=== PATIENT | female | born 1945 | race Caucasian/White ===

== ENCOUNTER 2019-01-21 21:26 | Emergency (ER) | payer MEDICARE, BC ==
--- NOTE | 2019-01-21 22:09 | RAD ---
FEXAM: Portable chest PROVIDED CLINICAL HISTORY: Chest pain COMPARISON: 07/17/2016 FINDINGS: Cardiac and mediastinal silhouette is within normal limits. No focal consolidation, pleural fluid or pneumothorax evident. Vascular calcification is noted involving the aortic arch. Implanted loop recor jany device again noted. IMPRESSION: No evidence for an acute cardiopulmonary process.
[2019-01-21 22:28] LABS: #Basophils 0.1 thou/uL (0.0-0.2); #Eosinphils 0.3 thou/uL (0.0-0.7); #Lymphocytes 2.3 thou/uL (1.20-3.40); #Monocytes 0.5 thou/uL (0.11-0.59); #Neutrophils 1.9 thou/uL (1.40-6.50); %Basophils 1.7 % (0.0-1.0); %Eosinophils 5.1 % (0.0-10.0); %Lymphocytes 45.6 % (21.0-51.0); %Monocytes 9.4 % (0.0-10.0); %Neutrophils 38.2 % (42.0-75.0); Hemoglobin 12.2 g/dL (12.0-16.0); Mean Corpuscular HGB CONC 33.2 g/dL (32.0-36.0); Mean Corpuscular Hemoglobin 28.1 pg (27.0-31.0); Mean Corpuscular Volume 84.6 fL (78.0-98.0); Mean Platelet Volume 7.2 fL (7.4-10.4); Platelet Count 217 thou/uL (130-400); RBC Distribution Width 12.8 % (11.5-14.5); Red Blood Cell (RBC) Count 4.33 mill/uL (4.20-5.40)
[2019-01-21 22:47] LABS: ALT (SGPT) 12 U/L (8-55); AST (SGOT) 18 U/L (5-34); Albumin 4.1 g/dL (3.4-4.8); Alkaline Phosphatase 80 U/L (40-150); Anion Gap 11 mmol/L (10-20); BUN (Urea Nitrogen) 15 mg/dL (9.8-20.1); Bilirubin, Total 0.3 mg/dL (0.2-1.2); CK (CPK) 37 U/L (29-168); Calc. Creatinine Clearance 0 mL/min (70-130); Calcium 10.2 mg/dL (7.8-10.44); Carbon Dioxide 23 mmol/L (23-31); Chloride 107 mmol/L (98-107); Estimated GFR-MDRD 88; Globulin 3.2 g/dL (2.4-3.5); Glucose 97 mg/dL (83-110); Potassium 3.4 mmol/L (3.5-5.1); Protein, Total 7.3 g/dL (6.0-8.3); Sodium 138 mmol/L (136-145)
[2019-01-22 01:51] LABS: Troponin I Less than 0.010 ng/mL (< 0.028)
== END 2019-01-22 02:10 | disposition home or self-care (01) ==
LOC: ERS 21:26
DX: R07.89 Other chest pain (principal); R00.2 Palpitations; E03.9 Hypothyroidism, unspecified; F41.9 Anxiety disorder, unspecified; I47.1 Supraventricular tachycardia; Z79.899 Other long term (current) drug therapy
CPT/HCPCS: 36415; 71045; 80053; 82550; 84484; 85025; 93005

== ENCOUNTER 2019-11-17 12:28 | Outpatient (CLI) | payer MEDICARE, BC ==
[2019-11-17] MEDS ORDERED: Iopamidol-370 76% 500 ML 1 ML ONE (13:24)
--- NOTE | 2019-11-17 14:58 | CT ---
CT NECK WITH CONTRAST: Date: 11/17/2019 INDICATION: Palpable mass base of neck on the right and above the clavicle. The area of concern is marked with a skin marker. FINDINGS: There is an enhancing nodular mass in the right parotid gland measuring 1.0 cm. Parotids otherwise un remarkable. Submandibular glands unremarkable. Thyroid unremarkable. Nasopharynx unremarkable. Base of tongue obscured by dental appliance artifact. The sublingual region and oropharynx appear unr emarkable. Hypopharynx and larynx unremarkable. [employer] space, parapharyngeal space, and retropharyngeal space unremarkable. Paranasal sinuses and mastoids clear. Degenerative changes in the cervical spine with spondylosis and disc narrowing at C4-5, C5-6, and C6-7 levels. No evidence of cervical adenopathy. Nonspecific Level II lymph nodes are subcentimeter. A skin marker is seen anteriorly at the base of the neck on the right just above the clavicle. No und erlying mass is identified at this location. IMPRESSION: 1. There is enhancing nodule in the right parotid gland. Pleomorphic adenoma or other parotid neopla sm cannot be excluded. Recommend ENT consultation and follow-up. 2. CT neck otherwise unremarkable. No evidence of mass seen at the site of the skin marker on the ri ght. POS: MYRNA
--- NOTE | 2019-11-17 15:06 | CT ---
CT OF THE THORAX WITH IV CONTRAST: INDICATION: History of neck mass. COMPARISON: None. FINDINGS: No visible lymphadenopathy is evident. No suspicious airspace consolidation, pulmonary nodule, or pl eural effusion is evident. There are 2 separate sub-4 mm pulmonary nodules within the right middle l obe. There are 2 separate tiny hypodensities within the liver, difficult to characterize due to thei r size. Adrenal glands are normal-appearing. There is scattered degenerative and osteoarthritic renata nge. There is a small hiatal hernia. IMPRESSION: No acute cardiopulmonary abnormality. POS: CET
== END 2019-11-17 12:29 | disposition home or self-care (01) ==
LOC: BICCT 12:28
PROVIDERS: ATTEND Family Medicine
DX: R22.1 Localized swelling, mass and lump, neck (principal); K11.8 Other diseases of salivary glands
CPT/HCPCS: 70491; 71260; 82565; Q9967

== ENCOUNTER 2019-12-17 08:43 | Day surgery (SDC) | payer MEDICARE, BC ==
[2019-12-16 12:04] VITALS: BMI 27.4
[2019-12-17] MEDS ORDERED: Fentanyl 250 MCG/5 ML VIAL ONE (09:15)
[2019-12-17 09:38] LABS: Hemoglobin 12.3 g/dL (12.0-16.0)
[2019-12-17] MEDS ORDERED: Lidocaine 1% PF 5 ML VIAL ONE (09:50)
[2019-12-17] MEDS ORDERED: Dexamethasone 20 MG/5 ML VIAL ONE (09:50)
[2019-12-17] MEDS ORDERED: Rocuronium Bromide 10 MG/ML (10ML VIAL) ONE (09:50)
[2019-12-17] MEDS ORDERED: EPHEDRINE 25 MG/5 ML SYRINGE ONE (09:50)
[2019-12-17] MEDS ORDERED: PROPOFOL 200 MG/20 ML VIAL ONE (09:50)
[2019-12-17] MEDS ORDERED: Glycopyrrolate 0.2 MG/ML 5 ML SYRINGE ONE (09:50)
[2019-12-17] MEDS ORDERED: Ondansetron PF 4 MG/2 ML Vial ONE (09:50)
[2019-12-17 09:59] LABS: Anion Gap 11 mmol/L (10-20); BUN (Urea Nitrogen) 17 mg/dL (9.8-20.1); Calc. Creatinine Clearance 79 mL/min (70-130); Calcium 9.8 mg/dL (7.8-10.44); Carbon Dioxide 27 mmol/L (23-31); Chloride 105 mmol/L (98-107); Estimated GFR-MDRD 78; Glucose 89 mg/dL (83-110); Potassium 3.3 mmol/L (3.5-5.1); Sodium 140 mmol/L (136-145)
[2019-12-17] MEDS ORDERED: Bacitracin Zinc Ointment 30 gm TUBE ONE (10:08)
[2019-12-17] MEDS ORDERED: Lidocaine 1% w/Epinephrine 1:100K 20 ML VIAL ONE (10:08)
[2019-12-17] MEDS ORDERED: Propofol 500 MG/50 ML VIAL ONE (10:36)
[2019-12-17] MEDS ORDERED: Clindamycin/D5W 900 mg/50 ml Premix Bag ONE (10:55)
--- NOTE | 2019-12-17 12:36 | EKG ---
Test Reason : PREOP Blood Pressure : / mmHG Vent. Rate : 075 BPM Atrial Rate : 075 BPM P-R Int : 184 ms QRS Dur : 112 ms QT Int : 404 ms P-R-T Axes : 065 -23 044 degrees QTc Int : 451 ms Normal sinus rhythm Normal ECG When compared with ECG of 21-JAN-2019 21:40, No significant change was found Confirmed by DR. Zaki TALBERT ([id number]) on 12/17/2019 12:35:52 PM Referred By: BLANCA Confirmed By:DR. Zaki TALBERT
--- NOTE | 2019-12-18 09:57 | OP ---
DATE OF PROCEDURE: 12/17/2019 PREOPERATIVE DIAGNOSIS: Right parotid gland mass. POSTOPERATIVE DIAGNOSIS: Right parotid gland mass. PROCEDURES PERFORMED: 1. Right superficial parotidectomy. 2. Intraoperative facial nerve monitoring x1 hour. ESTIMATED BLOOD LOSS: 10 mL. COMPLICATIONS: None. ANESTHESIA: GETA. DESCRIPTION OF PROCEDURE: The patient was taken to the operating room and placed supine on the table. General endotracheal anesthesia was obtained by the Anesthesia staff. The head of the bed was then turned 90 degrees. A shoulder roll was placed, and the head was gently tilted to provide exposure of the right parotid neck area. Following this, 8 mL of 1% lidocaine with 1:100,000 epinephrine was injected into a previously marked modified Blaine incision extending from the preauricular skin crease around the earlobe with a 1 cm margin and then connecting in a curvilinear fashion to connect to a skin crease approximately 2 cm below the right angle of the mandible. The patient was then prepped and draped in standard surgical fashion. The facial nerve monitor was inserted into the orbicularis auris and the orbicularis oculi muscle on the right side. It was tested and was noted to be working. It remained on throughout the procedure with the nurse designated to observe for any discharges. Following this, the skin was elevated, and the parotid gland was identified and was freed from the tragal cartilage as well as from the sternocleidomastoid. Dissection was carried down the tragal cartilage, and the right facial nerve main branch was identified. As it was dissected laterally, the pes anserinus was identified, and a parotid mass was identified just lateral and inferior to the inferior branch of the right facial nerve. The mass was removed along with a cuff of normal parotid tissue while preserving the facial nerve. Following this, wound was irrigated. Hemostasis was obtained. The skin was then reapproximated to its normal anatomical position. A drain was left intact and in place. The deep tissues were closed using 3-0 and 4-0 Monocryl, and the skin was closed using Dermabond. This was the end of the procedure. The facial nerve monitor was then removed and was turned off. Job ID: [id number]
== END 2019-12-17 13:10 | disposition home or self-care (01) ==
LOC: SDC 08:43
PROVIDERS: ATTEND Otolaryngology Plastic Surgery within the Head & Neck
PROC: 0CT80ZZ Resection of Right Parotid Gland, Open Approach (ICD-10-PCS; principal; 2019-12-17)
PROC: 00BM0ZZ Excision of Facial Nerve, Open Approach (ICD-10-PCS; 2019-12-17)
DX: D11.0 Benign neoplasm of parotid gland (principal); E65 Localized adiposity; E03.9 Hypothyroidism, unspecified; Z79.899 Other long term (current) drug therapy; Z88.0 Allergy status to penicillin; Z88.1 Allergy status to other antibiotic agents; Z88.2 Allergy status to sulfonamides; Z88.5 Allergy status to narcotic agent; Z91.040 Latex allergy status
CPT/HCPCS: 36415; 80048; 85014; 85018; 88305; 93005; 93010; J1100; J2001; J2405; J2704; J3010; J3490

== ENCOUNTER 2022-05-21 04:36 | Observation (INO) | payer MEDICARE, BC ==
[2022-05-21 05:47] LABS: #Eosinphils 0.2 thou/uL (0.0-0.7); #Lymphocytes 1.8 thou/uL (1.20-3.40); #Monocytes 0.5 thou/uL (0.11-0.59); %Basophils 0.8 % (0.0-1.0); %Eosinophils 4.3 % (0.0-10.0); %Lymphocytes 32.6 % (21.0-51.0); %Monocytes 8.6 % (0.0-10.0); %Neutrophils 53.7 % (42.0-75.0); ALT (SGPT) 10 U/L (8-55); AST (SGOT) 14 U/L (5-34); Albumin 3.9 g/dL (3.4-4.8); Alkaline Phosphatase 82 U/L (40-110); Anion Gap 17 mmol/L (10-20); BUN (Urea Nitrogen) 20 mg/dL (9.8-20.1); Bilirubin, Total 0.4 mg/dL (0.2-1.2); Calc. Creatinine Clearance 0 mL/min (70-130); Calcium 10.1 mg/dL (7.8-10.44); Carbon Dioxide 18 mmol/L (23-31); Chloride 111 mmol/L (98-107); Estimated GFR 89; Globulin 3.4 g/dL (2.4-3.5); Glucose 103 mg/dL (83-110); Hemoglobin 11.5 g/dL (12.0-16.0); Mean Corpuscular HGB CONC 32.4 g/dL (32.0-36.0); Mean Corpuscular Hemoglobin 25.1 pg (27.0-31.0); Mean Corpuscular Volume 77.4 fL (78.0-98.0); Mean Platelet Volume 8.6 fL (7.4-10.4); Platelet Count 243 thou/uL (130-400); Potassium 3.7 mmol/L (3.5-5.1); Protein, Total 7.3 g/dL (5.8-8.1); RBC Distribution Width 14.6 % (11.5-14.5); Sodium 142 mmol/L (136-145); White Blood Cell (WBC) Count 5.6 thou/uL (4.8-10.8)
[2022-05-21] MEDS ORDERED: Aspirin Chewable 81 MG TAB ONE (08:36)
[2022-05-21 09:52] LABS: Troponin I 0.038 ng/mL (< 0.028)
[2022-05-21 10:03] VITALS: BMI 28.6
[2022-05-21] MEDS ORDERED: Acetaminophen 325 MG TAB PO PRN (10:10)
[2022-05-21] MEDS ORDERED: Diltiazem 125 MG in Sodium Chloride 0.9% 100 ML IVPB SCH (10:15)
[2022-05-21] MEDS ORDERED: Ondansetron ODT 4 MG TAB PO PRN (10:18)
[2022-05-21] MEDS ORDERED: Ondansetron PF 4 MG/2 ML Vial IVP PRN (10:18)
[2022-05-21 12:15] LABS: Troponin I 0.042 ng/mL (< 0.028)
[2022-05-21] MEDS ORDERED: Flecainide 50 MG TAB PO SCH (12:15)
[2022-05-21] MEDS ORDERED: Diltiazem HCl 125 MG in Premix Bag 1 BAG IVPB SCH (12:45)
[2022-05-21 18:32] LABS: Troponin I 0.033 ng/mL (< 0.028)
[2022-05-21] MEDS: Enoxaparin Sodium 80 MG/0.8 ML SYRINGE SC SCH (20:46)
[2022-05-21] MEDS: Flecainide 50 MG TAB PO SCH (20:46)
[2022-05-21] MEDS ORDERED: Apixaban 5 MG TAB PO SCH ×2 (21:00)
[2022-05-22 05:29] LABS: #Basophils 0.1 thou/uL (0.0-0.2); #Eosinphils 0.3 thou/uL (0.0-0.7); #Lymphocytes 1.7 thou/uL (1.20-3.40); #Monocytes 0.4 thou/uL (0.11-0.59); #Neutrophils 1.9 thou/uL (1.40-6.50); %Basophils 1.3 % (0.0-1.0); %Eosinophils 6.5 % (0.0-10.0); %Lymphocytes 38.5 % (21.0-51.0); %Neutrophils 43.7 % (42.0-75.0); Mean Corpuscular HGB CONC 30.8 g/dL (32.0-36.0); Mean Corpuscular Hemoglobin 24.5 pg (27.0-31.0); Mean Corpuscular Volume 79.6 fL (78.0-98.0); Mean Platelet Volume 8.4 fL (7.4-10.4); Platelet Count 207 thou/uL (130-400); RBC Distribution Width 14.5 % (11.5-14.5); Red Blood Cell (RBC) Count 4.08 mill/uL (4.20-5.40); White Blood Cell (WBC) Count 4.3 thou/uL (4.8-10.8)
[2022-05-22 05:45] LABS: Anion Gap 12 mmol/L (10-20); BUN (Urea Nitrogen) 20 mg/dL (9.8-20.1); Calc. Creatinine Clearance 100 mL/min (70-130); Calcium 9.2 mg/dL (7.8-10.44); Carbon Dioxide 22 mmol/L (23-31); Chloride 108 mmol/L (98-107); Estimated GFR 94; Glucose 90 mg/dL (83-110); Potassium 3.6 mmol/L (3.5-5.1); Sodium 138 mmol/L (136-145)
[2022-05-22] MEDS ORDERED: Levothyroxine Sodium 100 MCG TAB PO SCH (06:00)
[2022-05-22] MEDS: Flecainide 50 MG TAB PO SCH (08:58)
[2022-05-22] MEDS: Enoxaparin Sodium 80 MG/0.8 ML SYRINGE SC SCH (11:09)
[2022-05-22 11:43] VITALS: BP 143/65; TEMP 98.3
== END 2022-05-22 11:52 | disposition home or self-care (01) ==
LOC: ERS 04:36 → 2SW 08:41
PROVIDERS: ADMIT Hospitalist; ATTEND Hospitalist
DX: I48.91 Unspecified atrial fibrillation (principal); E03.9 Hypothyroidism, unspecified; I47.1 Supraventricular tachycardia; I08.8 Other rheumatic multiple valve diseases; Z87.891 Personal history of nicotine dependence; Z79.890 Hormone replacement therapy; Z79.899 Other long term (current) drug therapy; Z88.0 Allergy status to penicillin; Z88.1 Allergy status to other antibiotic agents; Z88.2 Allergy status to sulfonamides; Z88.5 Allergy status to narcotic agent; Z91.040 Latex allergy status; Z20.822 Contact with and (suspected) exposure to COVID-19
CPT/HCPCS: 71045; 80048; 83735; 84484 ×2; 85025; 93005; 93306; 96372; G0378 ×3; U0003; U0005; 36415; 80053; 84443; 96374; J1650

== ENCOUNTER 2022-12-10 20:38 | Observation (INO) | payer OTHER, MEDICARE, BC ==
[2022-12-10] MEDS ORDERED: Ketorolac Tromethamine 30 MG/ML VIAL ONE (21:30)
[2022-12-10] MEDS ORDERED: Ondansetron PF 4 MG/2 ML Vial ONE (21:30)
[2022-12-10] MEDS ORDERED: Fentanyl 100 MCG/2 ML VIAL ONE (21:30)
[2022-12-10] MEDS ORDERED: Ketamine 50 MG/ML (10ML VIAL) ONE (21:32)
[2022-12-11] MEDS ORDERED: Ondansetron ODT 4 MG TAB PO PRN (00:49)
[2022-12-11] MEDS ORDERED: Dextrose 50% Abboject 50 ML SYRINGE SLOW IVP PRN (00:49)
[2022-12-11] MEDS ORDERED: Dextrose 5% in Water 1,000 ML IV PRN (00:49)
[2022-12-11] MEDS ORDERED: Ondansetron PF 4 MG/2 ML Vial IVP PRN (00:49)
[2022-12-11] MEDS ORDERED: TETANUS, DIPHTHERIA TOX,ADULT (TDVAX) 0.5 ML VIAL IM ONE (00:49)
[2022-12-11] MEDS ORDERED: traMADol HCl 50 MG TAB PO PRN (00:52)
[2022-12-11 01:13] VITALS: BMI 29.7
[2022-12-11] MEDS: Ibuprofen 200 MG TAB PO SCH ×2 (01:40→13:21)
[2022-12-11] MEDS: Acetaminophen 500 MG TAB PO SCH ×2 (01:40→13:20)
[2022-12-11 01:58] LABS: SARS-CoV-2 NAA Rapid Test Not Detected (NotDetected)
[2022-12-11 05:51] LABS: #Eosinphils 0.1 thou/uL (0.0-0.7); #Lymphocytes 1.6 thou/uL (1.20-3.40); #Monocytes 0.6 thou/uL (0.11-0.59); #Neutrophils 3.5 thou/uL (1.40-6.50); %Basophils 0.4 % (0.0-1.0); %Eosinophils 1.2 % (0.0-10.0); %Monocytes 9.9 % (0.0-10.0); %Neutrophils 61.5 % (42.0-75.0); Hemoglobin 9.8 g/dL (12.0-16.0); Mean Corpuscular HGB CONC 31.9 g/dL (32.0-36.0); Mean Corpuscular Hemoglobin 25.6 pg (27.0-31.0); Mean Corpuscular Volume 80.3 fl (78.0-98.0); Mean Platelet Volume 8.2 fL (7.4-10.4); Platelet Count 186 10x3/uL (130-400); RBC Distribution Width 14.5 % (11.5-14.5); Red Blood Cell (RBC) Count 3.84 mill/uL (4.20-5.40); White Blood Cell (WBC) Count 5.7 10x3/uL (4.8-10.8)
[2022-12-11] MEDS: traMADol HCl 50 MG TAB PO SCH ×2 (05:53→13:22)
[2022-12-11] MEDS ORDERED: Levothyroxine Sodium 100 MCG TAB PO SCH (06:00)
[2022-12-11 06:15] LABS: Anion Gap 8 mmol/L (10-20); BUN (Urea Nitrogen) 16 mg/dL (9.8-20.1); Calc. Creatinine Clearance 103 mL/min (70-130); Calcium 9.4 mg/dL (7.8-10.44); Carbon Dioxide 20 mmol/L (23-31); Estimated GFR 94; Glucose 94 mg/dL (83-110); Sodium 137 mmol/L (136-145)
[2022-12-11 07:03] LABS: Chloride 113 mmol/L (98-107)
[2022-12-11] MEDS ORDERED: Sertraline 25 MG TAB PO SCH (09:00)
[2022-12-11] MEDS ORDERED: Gabapentin 300 MG CAP PO SCH (09:00)
[2022-12-11] MEDS ORDERED: Ascorbic Acid 500 mg Chewable Tablet PO SCH (09:00)
[2022-12-11] MEDS ORDERED: Flecainide 50 MG TAB PO SCH (09:00)
[2022-12-11] MEDS ORDERED: Famotidine 20 MG TAB PO SCH (09:00)
[2022-12-11] MEDS ORDERED: Ferrous Sulfate 325 MG TAB PO SCH (11:15)
[2022-12-11 15:42] VITALS: BP 95/62; TEMP 98.5
[2022-12-12] MEDS ORDERED: Ferrous Sulfate 325 MG TAB PO SCH (08:00)
== END 2022-12-11 16:50 | disposition home or self-care (01) ==
LOC: ERS 20:38 → SURG A 23:18 → INTOOBSV 23:18
PROVIDERS: ADMIT Surgery; ATTEND Surgery
DX: S52.571A Other intraarticular fracture of lower end of right radius, initial encounter for closed fracture (principal); S52.611A Displaced fracture of right ulna styloid process, initial encounter for closed fracture; S62.001A Unspecified fracture of navicular [scaphoid] bone of right wrist, initial encounter for closed fracture; G89.11 Acute pain due to trauma; M18.11 Unilateral primary osteoarthritis of first carpometacarpal joint, right hand; I48.91 Unspecified atrial fibrillation; I47.1 Supraventricular tachycardia; E03.9 Hypothyroidism, unspecified; Z79.01 Long term (current) use of anticoagulants; Z79.890 Hormone replacement therapy; Z79.899 Other long term (current) drug therapy; Z88.0 Allergy status to penicillin; Z88.1 Allergy status to other antibiotic agents; Z88.2 Allergy status to sulfonamides; Z88.5 Allergy status to narcotic agent; Z91.040 Latex allergy status; Z20.822 Contact with and (suspected) exposure to COVID-19; W01.0XXA Fall on same level from slipping, tripping and stumbling without subsequent striking against object, initial encounter; Y93.H2 Activity, gardening and landscaping
CPT/HCPCS: 25605; 70450; 73100; 80048; 83735; 85025; 96374; 96375; 99152; 99153; 99284; G0378; U0002; 36415; J1885; J2405; J3010

== ENCOUNTER 2023-01-05 06:56 | Emergency (ER) | payer MEDICARE, BC ==
[2023-01-05 07:40] LABS: #Basophils 0.1 thou/uL (0.0-0.2); #Eosinphils 0.2 thou/uL (0.0-0.7); #Monocytes 0.4 thou/uL (0.11-0.59); #Neutrophils 2.2 thou/uL (1.40-6.50); %Basophils 1.6 % (0.0-1.0); %Eosinophils 4.2 % (0.0-10.0); %Lymphocytes 40.6 % (21.0-51.0); %Monocytes 8.8 % (0.0-10.0); %Neutrophils 44.8 % (42.0-75.0); Hemoglobin 11.4 g/dL (12.0-16.0); Mean Corpuscular HGB CONC 31.4 g/dL (32.0-36.0); Mean Corpuscular Hemoglobin 26.2 pg (27.0-31.0); Mean Corpuscular Volume 83.3 fl (78.0-98.0); Mean Platelet Volume 7.6 fL (7.4-10.4); Platelet Count 249 10x3/uL (130-400); RBC Distribution Width 15.6 % (11.5-14.5); Red Blood Cell (RBC) Count 4.36 mill/uL (4.20-5.40); White Blood Cell (WBC) Count 4.8 10x3/uL (4.8-10.8)
[2023-01-05 08:10] LABS: ALT (SGPT) 10 U/L (8-55); AST (SGOT) 18 U/L (5-34); Albumin 4.1 g/dL (3.4-4.8); Alkaline Phosphatase 76 U/L (40-110); Anion Gap 14 mmol/L (10-20); BUN (Urea Nitrogen) 15 mg/dL (9.8-20.1); Bilirubin, Total 0.4 mg/dL (0.2-1.2); Calc. Creatinine Clearance 0 mL/min (70-130); Carbon Dioxide 22 mmol/L (23-31); Chloride 105 mmol/L (98-107); Estimated GFR 90; Glucose 88 mg/dL (83-110); Lipase 21 U/L (8-78); Protein, Total 7.1 g/dL (5.8-8.1); Sodium 137 mmol/L (136-145)
== END 2023-01-05 09:00 | disposition home or self-care (01) ==
LOC: ERS 06:56
DX: R06.00 Dyspnea, unspecified (principal); R11.0 Nausea; I10 Essential (primary) hypertension
CPT/HCPCS: 36415; 71275; 80053; 83690; 83880; 84484; 85025; 93005

== ENCOUNTER 2023-05-28 10:11 | Outpatient (CLI) | payer MEDICARE, BC | END 2023-05-28 10:12 | disposition home or self-care (01) | LOC: BICMAMMO 10:11 | PROVIDERS: ATTEND Family Medicine | DX: Z13.820 Encounter for screening for osteoporosis (principal); M81.0 Age-related osteoporosis without current pathological fracture; Z78.0 Asymptomatic menopausal state | CPT/HCPCS: 77080 ==

== ENCOUNTER 2023-07-30 09:46 | Outpatient (CLI) | payer MEDICARE, BC | END 2023-07-30 09:47 | disposition home or self-care (01) | LOC: BICRAD 09:46 | PROVIDERS: ATTEND Family Medicine | DX: M54.9 Dorsalgia, unspecified (principal); M47.814 Spondylosis without myelopathy or radiculopathy, thoracic region | CPT/HCPCS: 36415; 72072; 80053; 80061; 84439; 84443; 84481; 85025 ==

== ENCOUNTER 2023-09-13 01:08 | Observation (INO) | payer MEDICARE, BC ==
[2023-09-13 01:59] LABS: #Eosinphils 0.2 thou/uL (0.0-0.7); #Monocytes 0.5 thou/uL (0.11-0.59); #Neutrophils 1.8 thou/uL (1.40-6.50); %Basophils 0.9 % (0.0-1.0); %Eosinophils 5.6 % (0.0-10.0); %Lymphocytes 40.5 % (21.0-51.0); %Monocytes 11.5 % (0.0-10.0); %Neutrophils 41.3 % (42.0-75.0); Hematocrit 32.7 % (36.0-47.0); Hemoglobin 10.1 g/dL (12.0-16.0); Mean Corpuscular HGB CONC 30.9 g/dL (32.0-36.0); Mean Corpuscular Hemoglobin 25.1 pg (27.0-31.0); Mean Corpuscular Volume 81.1 fl (78.0-98.0); Mean Platelet Volume 9.9 fL (7.4-10.4); Platelet Count 231 10x3/uL (130-400); RBC Distribution Width 15.6 % (11.5-14.5); Red Blood Cell (RBC) Count 4.03 mill/uL (4.20-5.40); White Blood Cell (WBC) Count 4.3 10x3/uL (4.8-10.8)
[2023-09-13 02:22] LABS: ALT (SGPT) 10 U/L (8-55); AST (SGOT) 18 U/L (5-34); Albumin 4.1 g/dL (3.4-4.8); Alkaline Phosphatase 47 U/L (40-110); Anion Gap 12 mmol/L (10-20); BUN (Urea Nitrogen) 19 mg/dL (9.8-20.1); Bilirubin, Total 0.4 mg/dL (0.2-1.2); Calc. Creatinine Clearance 0 mL/min (70-130); Calcium 9.5 mg/dL (7.8-10.44); Carbon Dioxide 23 mmol/L (23-31); Chloride 109 mmol/L (98-107); Estimated GFR 89; Globulin 3.1 g/dL (2.4-3.5); Glucose 97 mg/dL (83-110); Potassium 3.6 mmol/L (3.5-5.1); Protein, Total 7.2 g/dL (5.8-8.1); Sodium 140 mmol/L (136-145)
[2023-09-13 03:03] LABS: Troponin I Less than 0.010 ng/mL (< 0.028)
[2023-09-13 06:01] VITALS: BMI 28.8
[2023-09-13] MEDS ORDERED: Acetaminophen 325 MG TAB PO PRN (06:24)
[2023-09-13] MEDS ORDERED: Ondansetron PF 4 MG/2 ML Vial IVP PRN (06:24)
[2023-09-13] MEDS ORDERED: hydrALAZINE 20 MG/ML VIAL SLOW IVP PRN (06:42)
[2023-09-13 07:33] LABS: Troponin I 0.015 ng/mL (< 0.028)
[2023-09-13] MEDS ORDERED: Aspirin 81 mg Enteric Coated Tablet PO SCH (09:00)
[2023-09-13 09:41] LABS: Troponin I 0.027 ng/mL (< 0.028)
[2023-09-13] MEDS ORDERED: Iopamidol-370 76% 500 ML MDV (1 ML CHARGE) ONE (10:52)
[2023-09-13 15:41] VITALS: BP 127/60; TEMP 98.6
[2023-09-13] MEDS ORDERED: Flecainide 50 MG TAB PO SCH (21:00)
[2023-09-13] MEDS ORDERED: Flecainide Acetate 100 MG TAB PO SCH (21:00)
[2023-09-13] MEDS ORDERED: Gabapentin 100 MG CAP PO SCH (21:00)
[2023-09-13] MEDS ORDERED: Gabapentin 300 MG CAP PO SCH (21:00)
[2023-09-14] MEDS ORDERED: Levothyroxine Sodium 125 MCG TAB PO SCH (06:00)
[2023-09-14] MEDS ORDERED: Sertraline 25 MG TAB PO SCH (09:00)
[2023-09-14] MEDS ORDERED: Non-Formulary Item 1 EACH (Sertraline Hcl [Zoloft] 50 MG Tab) PO SCH (09:00)
[2023-09-14] MEDS ORDERED: Levothyroxine Sodium 100 MCG TAB PO SCH (09:00)
== END 2023-09-13 17:00 | disposition home or self-care (01) ==
LOC: ERS 01:08 → 2SW 05:48
PROVIDERS: ADMIT Internal Medicine; ATTEND Nurse Practitioner Acute Care
DX: R07.9 Chest pain, unspecified (principal); I10 Essential (primary) hypertension; I48.91 Unspecified atrial fibrillation; E03.9 Hypothyroidism, unspecified; Z87.891 Personal history of nicotine dependence; Z88.0 Allergy status to penicillin; Z88.1 Allergy status to other antibiotic agents; Z88.2 Allergy status to sulfonamides; Z88.5 Allergy status to narcotic agent; Z91.040 Latex allergy status; Z79.82 Long term (current) use of aspirin; Z79.890 Hormone replacement therapy; Z79.899 Other long term (current) drug therapy; Z90.89 Acquired absence of other organs; Z90.710 Acquired absence of both cervix and uterus; Z96.651 Presence of right artificial knee joint
CPT/HCPCS: 36415; 71045; 71275; 80053; 84484; 85025; 85379; 93005; 94760; G0378; Q9967

== ENCOUNTER 2023-11-19 12:47 | Outpatient (CLI) | payer MEDICARE, BC | END 2023-11-19 12:48 | disposition home or self-care (01) | LOC: BICMAMMO 12:47 | PROVIDERS: ATTEND Family Medicine | DX: Z12.31 Encounter for screening mammogram for malignant neoplasm of breast (principal) | CPT/HCPCS: 77063; 77067 ==